=== PATIENT | female | born 1995 | race Caucasian/White ===

== ENCOUNTER 2017-11-09 14:44 | Emergency (ER) | payer SELFPAY ==
[~2017-11-09] VITALS: Ht 172.7 cm; Wt 63.6 kg
[2017-11-09 14:48] VITALS: BP 107/67; TEMP 100.2
[2017-11-09 15:13] LABS: COLLECTION METHOD CLEAN CATCH
[2017-11-09 15:28] LABS: MUCOUS Present /lpf; PH 5 (5-8); SQUAMOUS EPITHELIAL 0-2 /hpf; URINE APPEARANCE Cloudy; URINE BACTERIA Rare /hpf; URINE BILIRUBIN Negative (NEGATIVE); URINE BLOOD 1+ (NEGATIVE); URINE COLOR Yellow; URINE GLUCOSE Negative (NEGATIVE); URINE KETONE Negative (NEGATIVE); URINE LEUKOCYTE ESTERASE 3+ (NEGATIVE); URINE NITRATE Negative (NEGATIVE); URINE PROTEIN(semi-quant) 2+ (NEGATIVE); URINE UROBILINOGEN Negative (NEGATIVE)
[2017-11-09] MEDS ORDERED: SEPTRA DS 8001 TAB PO (15:44)
[2017-11-09 16:06] VITALS: PULSE 100
== END 2017-11-09 16:07 | disposition home or self-care (01) ==
LOC: COL.ER 14:44
PROVIDERS: Emergency Medicine
DX: N39.0 Urinary tract infection, site not specified (principal); F17.210 Nicotine dependence, cigarettes, uncomplicated; Z88.0 Allergy status to penicillin